=== PATIENT | female | born 1960 | race Hispanic/Latino ===

== ENCOUNTER → 2024-01-05 07:22 | Outpatient (REF) | payer OTHER, SELFPAY ==
[2024-01-05 08:52] LABS: % Basophils 0.7 % (0-2); % Eosinophils 5.5 % (0-6); % Immature Granulocytes 0.2 % (0-0.5); % Lymphocytes 39.3 % (20.5-51.1); % Monocytes 7.9 % (1.7-9.3); % Neutrophils 46.4 % (42.2-75.2); Absolute Basophils 0.1 10^3/uL (0-0.2); Absolute Eosinophils 0.5 10^3/uL (0-0.7); Absolute Lymphocytes 3.4 10^3/uL (1.2-3.4); Absolute Monocytes 0.7 10^3/uL (0.1-0.6); Hematocrit 39.8 % (37.0-47.0); Hemoglobin 12.9 g/dL (12.0-16.0); Mean Corp Hgb Conc. 32.4 g/dL (33.0-37.0); Mean Corpuscular Hgb 29.2 pg (27.0-31.0); Mean Platelet Volume 10.7 fL (7.4-10.4); Nucleated Red Blood Cells % 0 %; Platelet Count 242 10^3/uL (130-400); Red Blood Cell Count 4.42 10^6/uL (4.20-5.40); Red Cell Dist. Width 14.3 % (11.5-14.5); White Blood Cell Count 8.7 10^3/uL (4.8-10.8)
[2024-01-05 09:39] LABS: Blood Urea Nitrogen 20 mg/dl (7-17); Calcium 9.7 mg/dl (8.4-10.2); Carbon Dioxide 28 mmol/L (22-30); Chloride 103 mmol/L (98-107); Glucose 137 mg/dl (70-99); Potassium 4.2 mmol/L (3.5-5.1); Sodium 140 mmol/L (135-145); eGFR > 60.00
[2024-01-05 13:15] LABS: Glycohemoglobin (HgbA1c) 6.5 % (4.0-5.6)
== END ==
LOC: CLINIC 07:22
PROVIDERS: ATTENDING PHYSICIAN Nurse Practitioner Adult Health
DX: K92.1 Melena (principal); E11.9 Type 2 diabetes mellitus without complications
CPT/HCPCS: 36415; 80048; 83036; 85025

== ENCOUNTER → 2024-01-20 06:18 | Day surgery (SDC) | payer OTHER, SELFPAY ==
[2024-01-20 08:46] LABS: Glucose - Point of Care 112 mg/dl (70-99)
== END ==
LOC: GI 06:18
PROVIDERS: ATTENDING PHYSICIAN Internal Medicine Gastroenterology
DX: Z12.11 Encounter for screening for malignant neoplasm of colon (principal); K64.8 Other hemorrhoids; D12.5 Benign neoplasm of sigmoid colon; K92.1 Melena; K29.60 Other gastritis without bleeding; B96.81 Helicobacter pylori [H. pylori] as the cause of diseases classified elsewhere
CPT/HCPCS: 45385; 43239; 88305; 82962; 88342

== ENCOUNTER 2024-01-25 14:12 | Inpatient (IN) | payer MEDICAID, SELFPAY ==
[2024-01-25 09:57] VITALS: BP 170/98
--- NOTE | 2024-01-25 11:16 | ED.GENMED ---
History of Present Illness
General
Chief Complaint: Anal/Rectal Problem
Source: patient
Exam Limitations: none
Time Seen by Provider: 01/25/24 11:00
Nursing documentation reviewed up to this point in time: agreed with
Travel History
Have you had any contact with someone who has COVID-19?: No
Do you have any symptoms of coronavirus? Fever > 100 degrees, chills, cough, shortness of breath, sore throat, loss of taste or smell, muscle aches, or headache?: No
History of Present Illness
History of Present Illness:
63-year-old female smoker with history of HTN, GERD, NIDDM, hysterectomy presents 5 days after colonoscopy with one 7 mm polyp removal, internal small hemorrhoids, biopsy showed Dameon back to gastritis, no malignancy, states every day since the
colonoscopy she has had rectal bleeding. Bleeding reportedly mild the first day after the colonoscopy, gradually increasing since and today had large amount liquid bloody stool with clots. Denies abdominal pain. Denies fever/chills.
Past History
Past History
ED Past Medical History: CAD, HTN, Hypercholesterolemia, NIDDM, [place] and Other (Diabetes)
ED Past Surgical History: Gynecological
Social History
Tobacco: Smoker
Alcohol: None
Drug: None
Living: with family
Review of Systems
Review of Systems
Allergies reviewed?: Yes
All Other Systems: ROS reviewed and negative except as documented in HPI and ROS
Constitutional: Denies fever or chills
Respiratory: Denies trouble breathing
Cardiac: Denies chest pain or syncope
ABD/GI: Reports bloody stools; Denies abdominal pain, nausea or vomiting
: Denies dysuria, difficulty voiding or urgency
Musculoskeletal: Reports no symptoms
Skin: Reports no symptoms
Neurological: Reports no symptoms
Phy Exam
Physical Exam
Physical Exam:
GENERAL: No acute distress. A&Ox3.
CONSTITUTIONAL: Afebrile.
EYES: Clear, conjunctivae normal
ENMT: moist mucus membranes, Pharynx nl
RESPIRATORY: Regular respirations, nonlabored, lungs clear.
CARDIOVASCULAR: Regular rate and rhythm, no murmurs, no rubs.
GI: Soft, nontender, normal BS
Rectal: No visible hemorrhoids, no stool in rectal vault, no palpable masses, mucus on gloved finger is pink, hematests positive.
MUSCULOSKELETAL: Moves with ease. Well perfused.
SKIN: Warm, dry, pink
PSYCH: Normal mood and affect. Well kept, interactive and appropriate
NEUROLOGIC: Awake, alert and oriented. No focal neurological deficits
Course
Orders/Labs/Results
Orders:
Orders
01/25/24 11:47
Type+Screen Urgent
Complete Blood Count/With Diff Urgent
Comprehensive Metabolic Panel Urgent
01/25/24 13:33
GASTROINTESTINAL CONSULT Urgent
Consulting Provider: Danni Ahn
Was physician already notified: Yes
Reason for consult: Rectal bleeding 5 days post colonoscopy
01/25/24 13:46
Admit/Transfer Patient As Directed
Co-Sign Provider:
Level of Care: Inpatient admission
Assign to:: Medical/Surgical
Physician / Group: Hospitalist
Diagnosis: GI bleeding
Reason for Hospitalization: .
Expected length of stay greater than two midnights?: Yes
ELOS- Estimated Length of Stay in days: 3
I certify the patient meets the requirements for IP care: Yes
01/25/24 13:50
Code Status As Directed
Resuscitation Status: Full Code
01/25/24 16:19
VTE Contraindication Routine
VTE Mechanical Device Contraindication: Medical Contraindication
Pharmocologic Contraindication: Bleeding
Abnormal Lab Results
01/25/24
11:47
RBC 3.88 L 10^6/uL
(4.20-5.40)
Hgb 11.5 L g/dL
(12.0-16.0)
Hct 34.3 L %
(37.0-47.0)
MPV 10.8 H fL
(7.4-10.4)
Absolute Monos (auto) 0.7 H 10^3/uL
(0.1-0.6)
BUN 19 H mg/dl
(7-17)
Creatinine 0.5 L mg/dL
(0.6-1.0)
Glucose 127 H mg/dl
(70-99)
01/25/24 11:47
01/25/24 11:47
Vital Signs
Initial and Last Documented VS:
Initial Vital Signs
Temp Pulse Resp BP Pulse Ox
98.3 F 56 20 170/98 96
01/25/24 09:57 01/25/24 09:57 01/25/24 09:57 01/25/24 09:57 01/25/24 09:57
Last Documented Vital Signs
Temp Pulse Resp BP Pulse Ox
98.3 F 55 18 165/80 99
01/25/24 09:57 01/25/24 14:24 01/25/24 14:24 01/25/24 14:24 01/25/24 14:24
MDM/Problems Addressed
Differential Diagnosis Includes:
Post colonoscopy bleeding, bleeding polyp, internal hemorrhoid
MDM/Problems Addressed:
63-year-old female smoker with history of HTN, GERD, NIDDM, hysterectomy presents 5 days after colonoscopy with one 7 mm polyp removal, internal small hemorrhoids, biopsy showed Dameon back to gastritis, no malignancy, states every day since the
colonoscopy she has had rectal bleeding. Bleeding reportedly mild the first day after the colonoscopy, gradually increasing since and today had large amount liquid bloody stool with clots. Denies abdominal pain. Denies fever/chills.
Pt reports she just had a liquid bloody BM with clots but this not observed by staff.
NAD, VSS
1:09 PM
CBC: Hemoglobin 11.5 (12.9 on 01/05/2024)
CMP: Normal
63 yo female on Plavix with daily rectal bleeding, reportedly increasing since colonoscopy 5 days ago.
Consulted GI Dr. Ahn who requests admit with clear liquids only. GI consult in
Hospitalist notified of admission.
Pt remains stable, no further rectal bleeding
Chronic conditions affecting care: DM, HTN and CAD (on Plavix)
*Critical Care Note
Total Time (30-74mins, 75-104mins- exclusive of procedures): Not Applicable
ED Attending Note
-
Portions of this chart may have been created with voice recognition software.� Occasional wrong word or��sound alike� substitutions may have occurred due to the inherent limitations of voice recognition software.
Discharge Plan
Departure
Patient Disposition: Admit
Date of Disposition: 01/25/24
Time of Disposition: 13:40
Admit to: Med/Surg
Presentation/result/management discussed w/ accepting MD/DO: Hospitalist
Condition: Fair
Discharge Problem:
RB (rectal bleeding)
Interventions
Interventions:
*Risk Screen - Suicide Last Done: 01/25/24 16:32
*General Assessment Last Done: 01/25/24 11:50
*Neglect/Abuse Screening Last Done: 01/25/24 11:50
ED- Fall Risk Assessment Last Done: 01/25/24 16:05
*ED COVID-19 Vaccine History Last Done: 01/25/24 11:50
*Nursing Disposition Last Done: 01/25/24 16:05
HA-G[facility] Assessment Last Done: 01/25/24 11:49
ED-Skin Assessment Last Done: 01/25/24 11:49
Discharge Date and Time
Discharge Date/Time: 01/25/24 16:05
[2024-01-25 12:01] LABS: % Basophils 0.6 % (0-2); % Eosinophils 2.6 % (0-6); % Immature Granulocytes 0.2 % (0-0.5); % Lymphocytes 25.3 % (20.5-51.1); % Neutrophils 64.3 % (42.2-75.2); Absolute Basophils 0.1 10^3/uL (0-0.2); Absolute Eosinophils 0.2 10^3/uL (0-0.7); Absolute Lymphocytes 2.3 10^3/uL (1.2-3.4); Absolute Monocytes 0.7 10^3/uL (0.1-0.6); Absolute Neutrophils 5.9 10^3/uL (1.4-6.5); Hematocrit 34.3 % (37.0-47.0); Hemoglobin 11.5 g/dL (12.0-16.0); Mean Corp Hgb Conc. 33.5 g/dL (33.0-37.0); Mean Corpuscular Hgb 29.6 pg (27.0-31.0); Mean Corpuscular Volume 88.4 fL (81.0-99.0); Mean Platelet Volume 10.8 fL (7.4-10.4); Nucleated Red Blood Cells % 0 %; Platelet Count 216 10^3/uL (130-400); Red Blood Cell Count 3.88 10^6/uL (4.20-5.40); Red Cell Dist. Width 14.3 % (11.5-14.5); White Blood Cell Count 9.2 10^3/uL (4.8-10.8)
[2024-01-25 12:19] LABS: ALT (SGPT) 21 U/L (0-35); AST (SGOT) 24 U/L (14-36); Albumin 4.3 g/dl (3.5-5.0); Alkaline Phosphatase 51 U/L (38-126); Blood Urea Nitrogen 19 mg/dl (7-17); Calcium 9.8 mg/dl (8.4-10.2); Carbon Dioxide 25 mmol/L (22-30); Chloride 106 mmol/L (98-107); Glucose 127 mg/dl (70-99); Potassium 4.5 mmol/L (3.5-5.1); Sodium 138 mmol/L (135-145); Total Bilirubin 0.5 mg/dl (0.2-1.3); Total Protein 6.9 g/dl (6.3-8.2); eGFR > 60.00
--- NOTE | 2024-01-25 13:45 | HPS.HSE ---
Family Physician
-
Family Physician: * NONE
Chief Complaint
-
Rectal bleeding for a few days during
History of Present Illness
63 years old female came from home. History taken from the patient and her daughter. Patient had colonoscopy on January 19. She started to have on and off rectal bleeding described as a fresh blood per rectum. It became more intense this
morning when she had bowel movement. No abdominal pain. No nausea or vomiting. She called her GI doctor office Dr. Leon and she was advised to go to the emergency room. Her hemoglobin is 11.5. No leukocytosis. Heart rate was 56.
Medical History
Past Medical History
Past Medical History: Reports Other (coronary artery disease, hypertension, hyperlipidemia, diabetes. )
Past Surgical History: Reports Other ( No recent major surgery)
Social History
Tobacco: Former Smoker
Alcohol: None
Drug: None
Personal:
Living: With Family
Employment: Not Employed
Family History
Family History: Other (No family history of colon cancer or inflammatory bowel disease)
Allergies / Home Medications
Allergies reflects when Allergies were last updated in [facility].
Home Medications with original date entered in [facility]
Allergy/Medication List:
Allergies
Allergy/AdvReac Type Severity Reaction Status Date / Time
No Known Allergies Allergy Verified 01/25/24 09:57
Home Medications
aspirin 81 mg chewable tablet 81 mg PO DAILY #90 tabs 08/08/23
atorvastatin 80 mg tablet 80 mg PO QPM #90 tabs 08/08/23
metoprolol tartrate 25 mg tablet 25 mg PO BID #180 tabs 08/08/23
pantoprazole 40 mg tablet,delayed release (Protonix) 40 mg PO BID #30 tabs 08/14/23
lisinopril 5 mg tablet 10 mg PO DAILY 01/25/24
metformin 500 mg tablet 1,000 mg PO BID@0800,1700 01/25/24
Review of Systems
-
History Source: Patient
A 12 point ROS was completed and negative except as noted: Yes
Constitutional: Denies Fever, Fatigue or Night Sweats
EENT: Denies Sore Throat
Respiratory: Denies Cough or Trouble Breathing
Cardiac: Denies Chest Pain or Diaphoresis
Abdomen/GI: Reports Bloody Stools; Denies Abdominal Pain or Nausea
: Denies Dysuria
Musculoskeletal: Denies Joint Pain
Skin: Denies Itching
Neurological: Denies Dizzy or Numbness
Endocrine: Denies Temp Intolerance
Hematologic/Lymphatic: Denies Bruising
Psych: Denies Panic Disorder
Physical Exam
Vital Signs
Vital Signs
Temp Pulse Resp BP Pulse Ox
98.3 F 56 20 170/98 96
01/25/24 09:57 01/25/24 09:57 01/25/24 09:57 01/25/24 09:57 01/25/24 09:57
Physical Exam
General: No Apparent Distress and Comfortable
HEENT: Anicteric, Moist mucous membranes and Atraumatic
Respiratory: Clear
Cardiac: Regular Rhythm and Murmur
GI: Soft, Non Tender and Non Distended
Genito-urinary: No costovertebral tender
Musculoskeletal: No Cyanosis and No Edema
Skin: Warm; No Jaundice
Neuro: AO x 3 and Nonfocal/grossly intact
Psych: Calm and Intact Judgment/Insight
Laboratory Results
-
01/25/24 11:47
01/25/24 11:47
Laboratory Results
Total Bilirubin 0.5 mg/dl (0.2-1.3) 01/25/24 11:47
AST 24 U/L (14-36) 01/25/24 11:47
ALT 21 U/L (0-35) 01/25/24 11:47
Alkaline Phosphatase 51 U/L (38-126) 01/25/24 11:47
Impression/Plan
-
63 years old female presented with rectal bleeding
# Acute blood loss anemia/mild secondary to rectal bleed
This could be related to recent colonoscopy and polypectomy. Patient takes aspirin at home.
No abdominal pain. No nausea or vomiting. No leukocytosis. No fevers
Admit the patient to the hospital. Monitor hemoglobin level. Continue with home medication including Protonix.
Biopsy during colonoscopy did not reveal carcinoma
Monitor vital signs closely
Appreciate GI input
# Helicobacter induced gastritis
No abdominal pain by history of indigestion and reflux.
Will discuss with GI which regimen they prefer/recommended
# History of coronary artery disease. No chest pain. Continue home medication including aspirin
#Diabetes. Will hold metformin and continue with insulin sign scale
#Primary hypertension, uncontrolled, systolic blood pressure between 175- 165. Patient took her medications at home. Will monitor blood pressure in the hospital. will add as needed hydralazine
# Hyperlipidemia. No changes intended.
Total time spent to see the patient, examine the patient on the floor, review data and lab results, discuss treatment plan with patient, ER doctor, nursing staff around 75 minutes.
[2024-01-25 14:24] VITALS: BP 165/80
--- NOTE | 2024-01-25 15:04 | CON.GI ---
Addendum entered and electronically signed by Danni Ahn MD 01/25/24 17:34:
I saw and examined the patient.
The BUFFING MACHINE TENDER or PA's note was reviewed and I agree with the note.
Comment: 63-year-old female past with history of CAD on Plavix and send refers only on aspirin presenting for melena, colonoscopy for positive Cologuard found to have H. pylori and 7 mm SSA in the sigmoid which was removed with cold snare. Had some
rectal bleeding. Most likely post polypectomy bleed. Suspect will resolve on its own. Will trend hemoglobin and monitor stools. Clear liquid diet. If ongoing bleeding, will need colonoscopy on Tuesday. If bleeding resolves, will be able to be
discharged tomorrow. H. pylori treatment outpatient would not treat an acute setting. Discussed with Dr. Shen and daughter at bedside. Patient Czech speaking.
Original Note:
Consultation
-
Date/Time Consultation Requested: 01/25/24 1400
Date/Time Consultation Performed: 01/25/24 1500
Requesting Provider: Dia Shen MD
Performing Provider: JELANI Santos, Gisela Ahn MD
Reason for Consultation: rectal bleeding
Medical History
Chief Complaint / HPI
Chief Complaint: rectal bleeding
History of Present Illness:
Pt is a 63yo present with hx CAD prior stent off Plavix since November on ASA alone no other NSAIDs, GERD, HTN, DM with EGD/colon 01/19 for + cologuard and melena. Results with noted 7 mm Sessile Serrated polyp- sigmoid removed with hot snare and
Internal hemorrhoids. EGD with normal esophagus and duodenum and gastritis with H pylori + . Pt now presents to ER with rectal bleeding. She initially saw blood day after colonoscopy but still persistent bleeding with larger amount of red blood
noted this am.
Pt denies other GI complaints with some soft stool noted with blood.
Past Medical History
Past Medical History: CAD, GERD, HTN and NIDDM
Past Surgical History: Cardiac (stents) and Gynecological (hysterectomy)
Social History
Tobacco: Former Smoker
Alcohol: None
Drug: None
Living: With Family
Family History
Family History: Other (no family hx colon cA or polyps)
Allergies / Home Medications
Allergy/AdvReac Type Severity Reaction Status Date / Time
No Known Allergies Allergy Verified 01/25/24 09:57
�Medication �Instructions �Recorded
aspirin 81 mg chewable tablet 81 mg PO DAILY #90 tabs 08/08/23
atorvastatin 80 mg tablet 80 mg PO QPM #90 tabs 08/08/23
metoprolol tartrate 25 mg tablet 25 mg PO BID #180 tabs 08/08/23
pantoprazole 40 mg tablet,delayed 40 mg PO BID #30 tabs 08/14/23
release (Protonix)
lisinopril 5 mg tablet 10 mg PO DAILY 01/25/24
metformin 500 mg tablet 1,000 mg PO BID@0800,1700 01/25/24
Review of Systems
-
History Source: Patient and Family (assist with language barrier)
Constitutional: Reports No Symptoms
EENT: Reports No Symptoms
Respiratory: Reports No Symptoms
Abdomen/GI: Reports Bloody Stools
: Reports No Symptoms
Musculoskeletal: Reports No Symptoms
Skin: Reports No Symptoms
Neurological: Reports Weakness
Endocrine: Reports No Symptoms
Hematologic/Lymphatic: Reports Bleeding
Vital Signs
Temp Pulse Resp BP Pulse Ox
98.3 F 55 18 165/80 99
01/25/24 09:57 01/25/24 14:24 01/25/24 14:24 01/25/24 14:24 01/25/24 14:24
Physical Exam
Exam
General: Well Developed, Well Nourished and No Apparent Distress
HEENT: Normocephalic, Anicteric and Moist Mucous Membranes
Respiratory: Clear
Cardiac: Regular Rhythm
GI: Soft, Non Tender and Non Distended
Rectal: Red (small amount red blood per Dr. Ahn exam)
Musculoskeletal: No Clubbing and No Cyanosis
Skin: Warm and Dry
Neuro: Awake, Alert and AO x 3 (monegasque speaking)
Hematologic/Lymphatic: Lymphadenopathy
Psych: Calm
Results
WBC 9.2 10^3/uL (4.8-10.8) 01/25/24 11:47
Hgb 11.5 g/dL (12.0-16.0) L 01/25/24 11:47
Hct 34.3 % (37.0-47.0) L 01/25/24 11:47
MCV 88.4 fL (81.0-99.0) 01/25/24 11:47
Plt Count 216 10^3/uL (130-400) 01/25/24 11:47
Absolute Neuts (auto) 5.9 10^3/uL (1.4-6.5) 01/25/24 11:47
Sodium 138 mmol/L (135-145) 01/25/24 11:47
Potassium 4.5 mmol/L (3.5-5.1) 01/25/24 11:47
Chloride 106 mmol/L (98-107) 01/25/24 11:47
Carbon Dioxide 25 mmol/L (22-30) 01/25/24 11:47
BUN 19 mg/dl (7-17) H 01/25/24 11:47
Creatinine 0.5 mg/dL (0.6-1.0) L 01/25/24 11:47
Calcium 9.8 mg/dl (8.4-10.2) 01/25/24 11:47
Total Bilirubin 0.5 mg/dl (0.2-1.3) 01/25/24 11:47
AST 24 U/L (14-36) 01/25/24 11:47
ALT 21 U/L (0-35) 01/25/24 11:47
Alkaline Phosphatase 51 U/L (38-126) 01/25/24 11:47
Diagnostic Image Results:
Prior GI Procedures:
EGD: 01/20/24 with normal esophagus and duodenum and gastritis with H pylori + .
Colonoscopy: 01/20/24 ronnivan 7 mm sessile serrated polyp -sigmoid removed with hot snare and Internal hemorrhoids.
Assessment / Plan
-
Pt is a 63yo present with hx CAD prior stent off Plavix since November on ASA alone no other NSAIDs, GERD, HTN, DM with EGD/colon 01/19 for + cologuard and melena. Results with noted 7 mm Sessile serrated polyp sigmoid colon, removed with hot
snare and Internal hemorrhoids. EGD with normal esophagus and duodenum and gastritis with H pylori + . Pt now presents to ER with rectal bleeding. She initially saw blood day after colonoscopy but still persistent bleeding with larger amount of
red blood noted this am. hbg 11.5 down from 12.9, 01/04.
-rectal bleeding concern for post polypectomy bleed after colonoscopy- Sessile serrated polyps in sigmoid
-+ H. pylori
other medical problems:
-CAD with prior stent
-GERD
-HTN
-DM
PLAN:
etiology of bleeding related to post polypectomy bleed vs hemorrhoidal vs other
plan for observation for recurrent bleeding
if further bleeding consider colonoscopy for further treatment of polyp site and eval for any other source
trend hbg
transfuse as needed
will need treatment for H pylori but would treat 1-2 weeks after admission after bleeding issues improved-
ok for clear diet
cont PPI
ok for continues ASA use with hx stent
family updated at bedside
will follow
-
-
Thank you for consultation and allowing me to participate in the patient's care. Please call the furnace combustion analyst GI physician during the after hours with any questions or concerns.
[2024-01-25 16:43] LABS: Hematocrit 32.7 % (37.0-47.0); Hemoglobin 10.9 g/dL (12.0-16.0)
[2024-01-25] MEDS: LIPITOR 80 MG PO (17:27)
--- NOTE | 2024-01-25 17:34 | W.PN.UPDATE ---
Update Note
Progress Note Update
billing purposes
--- NOTE | 2024-01-25 17:57 | PTCARENOTE ---
received pt from ED to room 319-2, assessed pt, oriented to room, call mg within reach, no complaints of pain.
[2024-01-25] MEDS: PROTONIX 40 MG PO (20:05)
[2024-01-25] MEDS: MELATONIN 5 MG PO (20:54)
[2024-01-25] MEDS: LOPRESSOR 12.5 MG PO (20:54)
[2024-01-25 23:44] VITALS: BP 143/65
[2024-01-26 00:34] LABS: Hematocrit 32.5 % (37.0-47.0); Hemoglobin 10.7 g/dL (12.0-16.0)
[2024-01-26 07:00] VITALS: BP 176/64
[2024-01-26] MEDS: LOW STRENGTH ASPIRIN 81 MG PO (08:54)
[2024-01-26] MEDS: LOPRESSOR 12.5 MG PO ×2 (08:54→20:36)
[2024-01-26] MEDS: PROTONIX 40 MG PO ×2 (08:54→20:36)
[2024-01-26] MEDS: ZESTRIL 20 MG PO (08:54)
[2024-01-26 09:14] LABS: Hematocrit 33.9 % (37.0-47.0); Hemoglobin 11.3 g/dL (12.0-16.0); Mean Corp Hgb Conc. 33.3 g/dL (33.0-37.0); Mean Corpuscular Hgb 29.4 pg (27.0-31.0); Mean Corpuscular Volume 88.1 fL (81.0-99.0); Mean Platelet Volume 10.3 fL (7.4-10.4); Platelet Count 214 10^3/uL (130-400); Red Blood Cell Count 3.85 10^6/uL (4.20-5.40); Red Cell Dist. Width 14.5 % (11.5-14.5); White Blood Cell Count 7.4 10^3/uL (4.8-10.8)
--- NOTE | 2024-01-26 09:56 | W.PN.GI.CBS2 ---
Addendum entered and electronically signed by Danni Ahn MD 01/26/24 13:27:
I saw and examined the patient.
The BALANCE ASSEMBLER or PA's note was reviewed and I agree with the note.
Comment: 63 yo F here with BRB after cscope suspect post polpectomy bleed 7 mm SSA removed cold snare.
No further BM x24 hours.
Hb stable.
Regular diet, plan for DC today. Counseled pt and daughter to return if bleeding recurs.
Will update hospitalist.
D/w Dr. Leon as well outpatient GI he will follow patient up including HP.
Addendum entered and electronically signed by JELANI Rousseau 01/26/24 12:34:
repeat hbg stable will advance diet
Original Note:
Today's Communication / Plan
-
etiology of bleeding related to post polypectomy bleed vs hemorrhoidal vs other
hbg 11.5-10.9-10.7-11.3
will repeat at noon again
monitor for recurrent bleeding
will decide at noon hbg and AM if any further stools if advance diet or proceed with colonoscopy prep for tomorrow
updated pt and family
transfuse as needed if drop
will need treatment for H pylori but would treat 1-2 weeks after admission after bleeding issues improved--- Dr. Leon updated and reviewed with daughter
cont PPI
ok for continues ASA use with hx stent
will follow
Assessment / Plan
-
Pt is a 63yo present with hx CAD prior stent off Plavix since November on ASA alone no other NSAIDs, GERD, HTN, DM with EGD/colon 01/19 for + cologuard and melena. Results with noted 7 mm Sessile serrated polyp sigmoid colon, removed with hot
snare and Internal hemorrhoids. EGD with normal esophagus and duodenum and gastritis with H pylori + . Pt now presents to ER with rectal bleeding. She initially saw blood day after colonoscopy but still persistent bleeding with larger amount of
red blood noted this am. hbg 11.5 down from 12.9, /.
-rectal bleeding concern for post polypectomy bleed after colonoscopy- Sessile serrated polyps in sigmoid
-+ H. pylori
other medical problems:
-CAD with prior stent
-GERD
-HTN
-DM
PLAN:
etiology of bleeding related to post polypectomy bleed vs hemorrhoidal vs other
hbg 11.5-10.9-10.7-11.3
will repeat at noon again
monitor for recurrent bleeding
will decide at noon hbg and AM if any further stools if advance diet or proceed with colonoscopy prep for tomorrow
updated pt and family
transfuse as needed if drop
will need treatment for H pylori but would treat 1-2 weeks after admission after bleeding issues improved--- Dr. Leon updated and reviewed with daughter
cont PPI
ok for continues ASA use with hx stent
will follow
Subjective
Subjective
Date of Service: January 26, 2024
01/24 blood stool records but patient and family deny any stools since 9am, on clear diet
Objective
Data Reviewed
Laboratory Data:
Laboratory Results
01/26/24 09:05
01/25/24 11:47
Laboratory Results
Total Bilirubin 0.5 mg/dl (0.2-1.3) 01/25/24 11:47
AST 24 U/L (14-36) 01/25/24 11:47
ALT 21 U/L (0-35) 01/25/24 11:47
Alkaline Phosphatase 51 U/L (38-126) 01/25/24 11:47
Vital Signs and I&O:
Vital Signs
Temp Pulse Resp BP Pulse Ox
97.8 F 53 16 176/64 98
01/26/24 07:00 01/26/24 08:54 01/26/24 07:00 01/26/24 08:54 01/26/24 07:00
I&O
01/25/24 01/26/24 01/27/24
06:59 06:59 06:59
Intake Total 240 / 240
Balance 240 / 240
Physical Exam
Physical Exam
HEENT: Anicteric and Moist mucous membranes
Cardiology: Other (bradicardia)
Pulmonary: Clear
GI: Soft, Non Distended and Non Tender
Extremities: No Edema
Neuro: Non Focal and Other (uzbek speaking family assist )
[2024-01-26 11:00] VITALS: BP 179/76
--- NOTE | 2024-01-26 12:04 | W.PN.HOSP.TC ---
Today's Communication/Plan
-
Advance diet
Monitor for rectal bleeding/ BM
Assessment / Plan
Assessment / Plan
Physical Exam
General: No Apparent Distress and Comfortable
HEENT: Anicteric, Moist mucous membranes and Atraumatic
Respiratory: Clear
Cardiac: Regular Rhythm and Murmur
GI: Soft, Non Tender and Non Distended
Genito-urinary: No costovertebral tender
Musculoskeletal: No Cyanosis and No Edema
Skin: Warm; No Jaundice
Neuro: AO x 3 and Nonfocal/grossly intact
Psych: Calm and Intact Judgment/Insight
63 years old female presented with rectal bleeding
# Acute blood loss anemia/mild secondary to rectal bleed
This could be related to recent colonoscopy and polypectomy. Patient takes aspirin at home.
No abdominal pain. No nausea or vomiting. No leukocytosis. No fevers
. Monitor hemoglobin level. HGB stable around 11. Continue with home medication including Protonix.
Biopsy during colonoscopy did not reveal carcinoma
Monitor vital signs closely
Appreciate GI input
# Helicobacter induced gastritis
No abdominal pain by history of indigestion and reflux.
To be treated as OP.
# History of coronary artery disease. No chest pain. Continue home medication including aspirin
#Diabetes. Will hold metformin and continue with insulin sign scale
#Primary hypertension, uncontrolled, systolic blood pressure between 175- 165. Patient took her medications at home. Will increase lisinopril to 20 mg QD, add PRN hydralazine.
No chest pain or headache
# Hyperlipidemia. No changes intended.
Total time spent to see the patient, examine the patient on the floor, review data and lab results, discuss treatment plan with patient, daughter, nursing staff around 55 minutes.
Anticipated Discharge: Within 24 hours
Subjective/Interval History
-
Date of Service: January 26, 2024
No sob
No chest pain
Objective Data
-
Labs:
Laboratory Results
01/26/24 01/26/24 01/26/24
00:27 08:19 09:05
WBC 7.4
Hgb 10.7 L Cancelled 11.3 L
Hct 32.5 L Cancelled 33.9 L
Plt Count 214
01/26/24
12:00
WBC
Hgb Pending
Hct Pending
Plt Count
Vital Signs:
Vital Signs
Temp Pulse Resp BP Pulse Ox
97.8 F 48 16 179/76 98
01/26/24 07:00 01/26/24 11:00 01/26/24 07:00 01/26/24 11:00 01/26/24 07:00
I&O
01/25/24 01/26/24 01/27/24
06:59 06:59 06:59
Intake Total 240 / 240
Balance 240 / 240
[2024-01-26 12:29] LABS: Hematocrit 35.7 % (37.0-47.0); Hemoglobin 11.4 g/dL (12.0-16.0)
[2024-01-26 13:01] VITALS: BP 138/60
--- NOTE | 2024-01-26 13:27 | W.PN.UPDATE ---
Update Note
Progress Note Update
billing purposes
[2024-01-26 15:00] VITALS: BP 169/74
[2024-01-26 16:45] LABS: Glucose - Point of Care 138 mg/dl (70-99)
[2024-01-26] MEDS: LIPITOR 80 MG PO (17:07)
[2024-01-26] MEDS: GLUCOPHAGE 1000 MG PO (17:07)
[2024-01-26] MEDS: MELATONIN 5 MG PO (21:13)
[2024-01-26] MEDS: APRESOLINE 5 MG PO (21:13)
[2024-01-26 21:18] LABS: Glucose - Point of Care 89 mg/dl (70-99)
[2024-01-26 23:25] VITALS: BP 159/68
[2024-01-27] MEDS: APRESOLINE 5 MG PO (02:41)
[2024-01-27 06:16] LABS: Hematocrit 34.1 % (37.0-47.0); Hemoglobin 11.1 g/dL (12.0-16.0); Mean Corp Hgb Conc. 32.6 g/dL (33.0-37.0); Mean Corpuscular Hgb 29.4 pg (27.0-31.0); Mean Corpuscular Volume 90.2 fL (81.0-99.0); Mean Platelet Volume 10.6 fL (7.4-10.4); Platelet Count 201 10^3/uL (130-400); Red Blood Cell Count 3.78 10^6/uL (4.20-5.40); Red Cell Dist. Width 14.3 % (11.5-14.5); White Blood Cell Count 7.5 10^3/uL (4.8-10.8)
--- NOTE | 2024-01-27 06:30 | W.PN.GI.CBS2 ---
Today's Communication / Plan
-
See assessment and plan for details.
Assessment / Plan
-
1. Post polypectomy bleed: No bowel movement for 2 days, hemoglobin remained stable, tolerating diet, no signs of further significant bleeding. She is okay to DC from a GI standpoint on aspirin if indicated. Will sign off for now, please back
with any further questions.
Subjective
Subjective
Date of Service: January 27, 2024
Patient feeling well, no abdominal pain, no bowel movements for 2 days, he will remained stable.
Objective
Data Reviewed
Laboratory Data:
Laboratory Results
01/27/24 05:56
Laboratory Results
Total Bilirubin 0.5 mg/dl (0.2-1.3) 01/25/24 11:47
AST 24 U/L (14-36) 01/25/24 11:47
ALT 21 U/L (0-35) 01/25/24 11:47
Alkaline Phosphatase 51 U/L (38-126) 01/25/24 11:47
Vital Signs and I&O:
Vital Signs
Temp Pulse Resp BP Pulse Ox
97.6 F 54 18 152/75 99
01/26/24 23:25 01/27/24 02:41 01/26/24 23:25 01/27/24 02:41 01/26/24 23:25
I&O
01/25/24 01/26/24 01/27/24
06:59 06:59 06:59
Intake Total 240 / 240 1560 / 1560
Balance 240 / 240 1560 / 1560
Physical Exam
Physical Exam
General: NAD
Abdomen: normal bowel sounds, soft, no tenderness, no masses or bruits, no ascites
[2024-01-27 06:50] LABS: Blood Urea Nitrogen 21 mg/dl (7-17); Calcium 9.8 mg/dl (8.4-10.2); Carbon Dioxide 29 mmol/L (22-30); Chloride 104 mmol/L (98-107); Estimated Creatinine Clearance 98 ml/min; Glucose 125 mg/dl (70-99); Potassium 4.3 mmol/L (3.5-5.1); Sodium 138 mmol/L (135-145); eGFR > 60.00
[2024-01-27 07:38] VITALS: BP 120/63
[2024-01-27 07:45] LABS: Glucose - Point of Care 122 mg/dl (70-99)
[2024-01-27] MEDS: GLUCOPHAGE 1000 MG PO (08:20)
[2024-01-27] MEDS: LOW STRENGTH ASPIRIN 81 MG PO (08:21)
[2024-01-27] MEDS: LOPRESSOR 12.5 MG PO (08:21)
[2024-01-27] MEDS: PROTONIX 40 MG PO (08:21)
[2024-01-27] MEDS: ZESTRIL 20 MG PO (08:21)
--- NOTE | 2024-01-27 08:32 | CM ---
met with patient at bedside who speaks kyrgyz.she does not understand any englis.i spoke with daughter joel for information.patient lives with her daughter in an apt in her house.she has 15 steps to enter.her bed and bath is on the first
level,she amb i and is i with her adl's.she sees a doctor through the [place] [facility] at .she has never had a vn or been in ip rehab.patient is adm with gi bleed after polypectomy.seen by gi.she has a stable hgb and is tolerating her
diet.patient will dc home with no needs.
--- NOTE | 2024-01-27 09:18 | W.DCSUMMARY ---
Discharge Summary
Discharge Data
Date of Admission: 01/25/24
Date of Discharge: 01/27/24
-
Pending Results: No
Hospital Course
63 years old female who had recent colonoscopy and polypectomy presented with infrequent episodes of fresh blood in her stools. Her hemoglobin was around 11 upon admission. She did not have abdominal pain or nausea. She was evaluated by
bioinformatics engineer. Patient did not have recurrent rectal bleeding or bloody bowel movements in the hospital. Hemoglobin remained stable around 11. She tolerated diet. She was noticed to have elevated systolic blood pressure around 170. Her
lisinopril dose was increased from 10 mg to 20 mg. She tolerated the new dose and her blood pressure became better controlled. She did not have chest pain or headache. She remained hemodynamically stable and was discharged in a stable condition.
Discharge plan was discussed with the patient and the daughter in the presence of bean weigher. She verbalized understanding. She was given prescription to repeat blood work in 1 week and follow-up with her primary care doctor.
Physical Exam
General: No Apparent Distress and Comfortable
HEENT: Anicteric, Moist mucous membranes and Atraumatic
Respiratory: Clear
Cardiac: Regular Rhythm and Murmur
GI: Soft, Non Tender and Non Distended
Genito-urinary: No costovertebral tender
Musculoskeletal: No Cyanosis and No Edema
Skin: Warm; No Jaundice
Neuro: AO x 3 and Nonfocal/grossly intact
Psych: Calm and Intact Judgment/Insight
Total discharge time spent to see the patient, examine the patient on the floor, review data and lab results, discuss discharge plan with patient, daughter, nursing staff around 65 minutes.
Discharge Plan
-
Patient Disposition: Home (Routine Discharge)
Discharge Diagnosis/Procedures: Gastrointestinal bleeding. No recurrent active bleeding. Stable hemoglobin
Your blood pressure was elevated, lisinopril dose was increased from 10mg to 20 mg.
Follow with your primary car doctor, repeat blood work.
You will need to follow with Dr Leon regarding the biopsy result of the stomach and need to treat H.Pylori
Diet: Diabetic, Carb Controlled
Blood Work: CBC&BMP in one week
Referrals:
Ke Leon MD [Active] - in one to two weeks
NONE,* [Family Provider] -
Prescriptions:
New
lisinopril 20 mg Tablet
20 mg PO DAILY Qty: 30 0RF
Continued
atorvastatin 80 mg Tablet
80 mg PO QPM Qty: 90 3RF
aspirin 81 mg Tablet,Chewable
81 mg PO DAILY Qty: 90 3RF
pantoprazole [Protonix] 40 mg tablet,delayed release (DR/EC)
40 mg PO BID Qty: 30 0RF
metformin 500 mg tablet
1,000 mg PO BID@0800,1700
sertraline 50 mg Tablet
50 mg PO DAILY
metoprolol tartrate 25 mg Tablet
12.5 mg PO BID
Discontinued
lisinopril 5 mg tablet
10 mg PO DAILY
Discharge Orders:
Discharge Patient (As Directed); Ordered 01/27/24
Ordered By: Chidi Shen
Discharge Date and Time
Print Language: BURUNDIAN
== END 2024-01-27 11:33 | disposition home or self-care (01) | DRG 378 ==
LOC: 3 WEST ACU 14:12
PROVIDERS: Nurse Practitioner Adult Health; Registered Nurse; ADMITTING PHYSICIAN Internal Medicine; CONSULT PHYSICIAN Internal Medicine Gastroenterology; EMERGENCY PHYSICIAN Emergency Medicine
DX: K62.5 Hemorrhage of anus and rectum (principal); D62 Acute posthemorrhagic anemia; I10 Essential (primary) hypertension; K21.9 Gastro-esophageal reflux disease without esophagitis; F17.200 Nicotine dependence, unspecified, uncomplicated; E78.00 Pure hypercholesterolemia, unspecified; I25.10 Atherosclerotic heart disease of native coronary artery without angina pectoris; K29.70 Gastritis, unspecified, without bleeding; E11.9 Type 2 diabetes mellitus without complications; B96.81 Helicobacter pylori [H. pylori] as the cause of diseases classified elsewhere; Z90.710 Acquired absence of both cervix and uterus; I25.2 Old myocardial infarction; Z79.82 Long term (current) use of aspirin; Z79.84 Long term (current) use of oral hypoglycemic drugs; Z95.5 Presence of coronary angioplasty implant and graft
CPT/HCPCS: 80048; 80053; 82962; 85014; 85018; 85025; 85027; 86850; 86900; 86901; 99283

== ENCOUNTER → 2024-04-10 06:32 | Outpatient (REF) | payer MEDICAID, SELFPAY ==
[2024-04-10 07:50] LABS: ALT (SGPT) 26 U/L (0-35); AST (SGOT) 24 U/L (14-36); Albumin 4.8 g/dl (3.5-5.0); Alkaline Phosphatase 84 U/L (38-126); Blood Urea Nitrogen 16 mg/dl (7-17); Calcium 10.1 mg/dl (8.4-10.2); Carbon Dioxide 23 mmol/L (22-30); Chloride 105 mmol/L (98-107); Glucose 127 mg/dl (70-99); Potassium 4.8 mmol/L (3.5-5.1); Sodium 140 mmol/L (135-145); Total Bilirubin 0.6 mg/dl (0.2-1.3); Total Protein 7.7 g/dl (6.3-8.2); eGFR > 60.00
[2024-04-10 07:59] LABS: Microalbumin, Random Urine 0.8 mg/dl (0.6-1.7); Microalbumin/creatinine Ratio 11.6 mg/g
[2024-04-10 08:39] LABS: Glycohemoglobin (HgbA1c) 6.2 % (4.0-5.6)
== END ==
LOC: REG 06:32
PROVIDERS: ATTENDING PHYSICIAN Nurse Practitioner Adult Health
DX: E11.9 Type 2 diabetes mellitus without complications (principal)
CPT/HCPCS: 36415; 80053; 82043; 82570; 83036

== ENCOUNTER → 2024-05-07 08:39 | Outpatient (REF) | payer OTHER, SELFPAY | LOC: WDC 08:39 | PROVIDERS: ATTENDING PHYSICIAN Nurse Practitioner Adult Health | DX: R92.8 Other abnormal and inconclusive findings on diagnostic imaging of breast (principal) | CPT/HCPCS: 77062; 77066 ==

== ENCOUNTER → 2024-05-15 06:26 | Outpatient (REF) | payer OTHER, SELFPAY ==
[2024-05-15 07:16] LABS: Hematocrit 40.7 % (37.0-47.0); Hemoglobin 13.4 g/dL (12.0-16.0); Mean Corp Hgb Conc. 32.9 g/dL (33.0-37.0); Mean Corpuscular Hgb 29.2 pg (27.0-31.0); Mean Corpuscular Volume 88.7 fL (81.0-99.0); Mean Platelet Volume 10.5 fL (7.4-10.4); Platelet Count 252 10^3/uL (130-400); Red Blood Cell Count 4.59 10^6/uL (4.20-5.40); Red Cell Dist. Width 14.9 % (11.5-14.5); White Blood Cell Count 9.1 10^3/uL (4.8-10.8)
[2024-05-15 07:43] LABS: HDL Cholesterol 60 mg/dl; LDL Cholesterol, Calculated 71 mg/dl; Total Cholesterol 146 mg/dl (50-199); Triglyceride 78 mg/dl (10-149); Very Low Density Lipoprotein 15 mg/dl (0-30)
[2024-05-16 12:07] LABS: H. pylori Breath Test Positive (Negative)
== END ==
LOC: REG 06:26
PROVIDERS: ATTENDING PHYSICIAN Nurse Practitioner Adult Health
DX: I25.10 Atherosclerotic heart disease of native coronary artery without angina pectoris (principal); E78.5 Hyperlipidemia, unspecified; D50.9 Iron deficiency anemia, unspecified; A04.8 Other specified bacterial intestinal infections
CPT/HCPCS: 36415; 80061; 83013; 85027

== ENCOUNTER → 2024-06-01 06:59 | Outpatient (REF) | payer OTHER, SELFPAY | LOC: RCS 06:59 | PROVIDERS: ATTENDING PHYSICIAN Internal Medicine Cardiovascular Disease; FAMILY PHYSICIAN Nurse Practitioner Adult Health | DX: I25.10 Atherosclerotic heart disease of native coronary artery without angina pectoris (principal); I10 Essential (primary) hypertension; R01.1 Cardiac murmur, unspecified | CPT/HCPCS: 78452; 93017; A9500 ==

== ENCOUNTER → 2024-06-08 08:02 | Outpatient (REF) | payer OTHER, SELFPAY | LOC: RCS 08:02 | PROVIDERS: ATTENDING PHYSICIAN Internal Medicine Cardiovascular Disease | DX: R01.1 Cardiac murmur, unspecified (principal) | CPT/HCPCS: 93306 ==

== ENCOUNTER → 2024-06-20 06:39 | Outpatient (REF) | payer OTHER, SELFPAY ==
[2024-06-21 09:48] LABS: H. pylori Breath Test Negative (Negative)
== END ==
LOC: REG 06:39
PROVIDERS: ATTENDING PHYSICIAN Nurse Practitioner Adult Health
DX: A04.8 Other specified bacterial intestinal infections (principal)
CPT/HCPCS: 83013

== ENCOUNTER → 2024-09-19 06:38 | Outpatient (REF) | payer OTHER, SELFPAY ==
[2024-09-19 09:30] LABS: Glycohemoglobin (HgbA1c) 6.2 % (4.0-5.6)
[2024-09-19 10:03] LABS: ALT (SGPT) 43 U/L (0-35); AST (SGOT) 30 U/L (14-36); Albumin 4.7 g/dl (3.5-5.0); Alkaline Phosphatase 70 U/L (38-126); Blood Urea Nitrogen 23 mg/dl (7-17); Calcium 10.1 mg/dl (8.4-10.2); Carbon Dioxide 26 mmol/L (22-30); Chloride 101 mmol/L (98-107); Glucose 118 mg/dl (70-99); Potassium 5.2 mmol/L (3.5-5.1); Sodium 142 mmol/L (135-145); Total Bilirubin 0.2 mg/dl (0.2-1.3); Total Protein 7.6 g/dl (6.3-8.2); eGFR > 60.00
== END ==
LOC: CLINIC 06:38
PROVIDERS: ATTENDING PHYSICIAN Nurse Practitioner Adult Health
DX: E11.9 Type 2 diabetes mellitus without complications (principal)
CPT/HCPCS: 36415; 80053; 83036

== ENCOUNTER → 2024-10-10 06:44 | Outpatient (REF) | payer OTHER, SELFPAY ==
[2024-10-10 08:59] LABS: Blood Urea Nitrogen 13 mg/dl (7-17); Calcium 9.7 mg/dl (8.4-10.2); Carbon Dioxide 28 mmol/L (22-30); Chloride 101 mmol/L (98-107); Glucose 109 mg/dl (70-99); Potassium 4.6 mmol/L (3.5-5.1); Sodium 137 mmol/L (135-145); eGFR > 60.00
== END ==
LOC: CLINIC 06:44
PROVIDERS: ATTENDING PHYSICIAN Nurse Practitioner Adult Health
DX: E87.5 Hyperkalemia (principal)
CPT/HCPCS: 36415; 80048

== ENCOUNTER → 2024-11-02 16:00 | Outpatient (REF) | payer OTHER, SELFPAY ==
[2024-11-02 16:56] LABS: Urine Albumin Negative (Neg - Trace); Urine Bilirubin Negative (Negative); Urine Character Clear (Clear); Urine Color Yellow; Urine Glucose 3+ (Negative); Urine Ketone Negative (Negative); Urine Leukocyte Negative (Negative); Urine Nitrite Negative (Negative); Urine Occult Blood 4+ (Negative); Urine Urobilinogen Negative (Neg - 1+)
[2024-11-02 18:56] LABS: Urine Red Blood Cell 50-60 /HPF (0-2); Urine White Cell 0-2 /HPF (0-5)
== END ==
LOC: CLINIC 16:00
PROVIDERS: ATTENDING PHYSICIAN Nurse Practitioner Adult Health
DX: R31.9 Hematuria, unspecified (principal)
CPT/HCPCS: 81003; 81015; 87086

== ENCOUNTER → 2024-11-05 13:40 | Outpatient (REF) | payer OTHER, SELFPAY | LOC: WDC 13:40 | PROVIDERS: ATTENDING PHYSICIAN Nurse Practitioner Adult Health | DX: R92.8 Other abnormal and inconclusive findings on diagnostic imaging of breast (principal); N60.09 Solitary cyst of unspecified breast | CPT/HCPCS: 77062; 77066 ==

== ENCOUNTER → 2024-11-12 07:03 | Outpatient (REF) | payer OTHER, SELFPAY ==
[2024-11-12 09:15] LABS: Urine Albumin Negative (Neg - Trace); Urine Bilirubin Negative (Negative); Urine Character Clear (Clear); Urine Color Yellow; Urine Glucose 3+ (Negative); Urine Ketone Negative (Negative); Urine Leukocyte Negative (Negative); Urine Nitrite Negative (Negative); Urine Occult Blood 4+ (Negative); Urine Urobilinogen Negative (Neg - 1+)
[2024-11-12 09:25] LABS: Urine Red Blood Cell 16-20 /HPF (0-2); Urine White Cell 0-2 /HPF (0-5)
== END ==
LOC: RAD 07:03
PROVIDERS: ATTENDING PHYSICIAN Nurse Practitioner Adult Health
DX: R31.9 Hematuria, unspecified (principal)
CPT/HCPCS: 76770; 81003; 81015

== ENCOUNTER → 2024-12-17 14:10 | Outpatient (REF) | payer OTHER, SELFPAY | LOC: CLINIC 14:10 | PROVIDERS: ATTENDING PHYSICIAN Urology | DX: R31.0 Gross hematuria (principal) | CPT/HCPCS: 88112 ==

== ENCOUNTER → 2024-12-18 16:11 | Outpatient (REF) | payer OTHER, SELFPAY | LOC: RAD 16:11 | PROVIDERS: ATTENDING PHYSICIAN Urology; FAMILY PHYSICIAN Nurse Practitioner Adult Health | DX: R31.0 Gross hematuria (principal) | CPT/HCPCS: 74178; Q9967 ==

== ENCOUNTER → 2024-12-27 06:50 | Outpatient (REF) | payer OTHER, SELFPAY ==
[2024-12-27 07:39] LABS: Urine Albumin Negative (Neg - Trace); Urine Bilirubin Negative (Negative); Urine Character Clear (Clear); Urine Color Yellow; Urine Glucose 4+ (Negative); Urine Ketone Negative (Negative); Urine Leukocyte 1+ (Negative); Urine Nitrite Negative (Negative); Urine Occult Blood Negative (Negative); Urine Urobilinogen Negative (Neg - 1+)
[2024-12-27 08:07] LABS: Urine Urothelial Cell 0-2 /LPF (FEW)
[2024-12-27 08:08] LABS: Urine Bacteria Moderate (Negative); Urine Red Blood Cell 0-2 /HPF (0-2)
[2024-12-27 08:23] LABS: ALT (SGPT) 37 U/L (0-35); AST (SGOT) 25 U/L (14-36); Albumin 4.4 g/dl (3.5-5.0); Alkaline Phosphatase 81 U/L (38-126); Blood Urea Nitrogen 17 mg/dl (7-17); Calcium 9.9 mg/dl (8.4-10.2); Carbon Dioxide 25 mmol/L (22-30); Chloride 103 mmol/L (98-107); Glucose 117 mg/dl (70-99); Sodium 137 mmol/L (135-145); Total Bilirubin 0.4 mg/dl (0.2-1.3); Total Protein 7.3 g/dl (6.3-8.2); eGFR > 60.00
[2024-12-27 08:24] LABS: Glycohemoglobin (HgbA1c) 6.3 % (4.0-5.6)
[2024-12-27 08:39] LABS: Microalbumin, Random Urine <0.6 mg/dl (0.6-1.7)
== END ==
LOC: CLINIC 06:50
PROVIDERS: ATTENDING PHYSICIAN Nurse Practitioner Adult Health
DX: E11.9 Type 2 diabetes mellitus without complications (principal); R31.0 Gross hematuria
CPT/HCPCS: 36415; 80053; 81003; 81015; 82043; 82570; 83036; 88112

== ENCOUNTER → 2025-01-23 06:36 | Outpatient (REF) | payer OTHER, SELFPAY ==
[2025-01-23 08:13] LABS: HDL Cholesterol 58 mg/dl; LDL Cholesterol, Calculated 60 mg/dl; Total Cholesterol 134 mg/dl (50-199); Triglyceride 84 mg/dl (10-149); Very Low Density Lipoprotein 16 mg/dl (0-30)
== END ==
LOC: CLINIC 06:36
PROVIDERS: ATTENDING PHYSICIAN Nurse Practitioner Adult Health
DX: I25.10 Atherosclerotic heart disease of native coronary artery without angina pectoris (principal); I21.4 Non-ST elevation (NSTEMI) myocardial infarction; E78.5 Hyperlipidemia, unspecified
CPT/HCPCS: 36415; 80061

== ENCOUNTER → 2025-04-16 06:34 | Outpatient (REF) | payer OTHER, SELFPAY ==
[2025-04-16 07:20] LABS: Hematocrit 39.3 % (37.0-47.0); Mean Corp Hgb Conc. 33.1 g/dL (33.0-37.0); Mean Corpuscular Hgb 29.6 pg (27.0-31.0); Mean Corpuscular Volume 89.5 fL (81.0-99.0); Mean Platelet Volume 10.2 fL (7.4-10.4); Platelet Count 226 10^3/uL (130-400); Red Blood Cell Count 4.39 10^6/uL (4.20-5.40); Red Cell Dist. Width 14.6 % (11.5-14.5); White Blood Cell Count 8.1 10^3/uL (4.8-10.8)
[2025-04-16 07:52] LABS: ALT (SGPT) 27 U/L (0-35); AST (SGOT) 20 U/L (14-36); Albumin 4.6 g/dl (3.5-5.0); Alkaline Phosphatase 66 U/L (38-126); Blood Urea Nitrogen 23 mg/dl (7-17); Calcium 9.9 mg/dl (8.4-10.2); Carbon Dioxide 26 mmol/L (22-30); Chloride 107 mmol/L (98-107); Glucose 119 mg/dl (70-99); Potassium 4.6 mmol/L (3.5-5.1); Sodium 141 mmol/L (135-145); Total Bilirubin 0.4 mg/dl (0.2-1.3); Total Protein 7.2 g/dl (6.3-8.2); eGFR > 60.00
[2025-04-16 08:58] LABS: Glycohemoglobin (HgbA1c) 6.3 % (4.0-5.6)
== END ==
LOC: CLINIC 06:34
PROVIDERS: ATTENDING PHYSICIAN Nurse Practitioner Adult Health
DX: K29.60 Other gastritis without bleeding (principal); K21.9 Gastro-esophageal reflux disease without esophagitis; E11.9 Type 2 diabetes mellitus without complications
CPT/HCPCS: 36415; 80053; 83036; 85027

== ENCOUNTER → 2025-07-18 09:50 | Outpatient (REF) | payer OTHER, SELFPAY ==
[2025-07-18 11:05] LABS: Microalb - Urine Creatinine 31.500 mg/dl
[2025-07-18 11:09] LABS: Microalbumin, Random Urine <0.6 mg/dl (0.6-1.7)
[2025-07-18 11:16] LABS: ALT (SGPT) 30 U/L (0-35); AST (SGOT) 21 U/L (14-36); Albumin 4.7 g/dl (3.5-5.0); Alkaline Phosphatase 70 U/L (38-126); Blood Urea Nitrogen 22 mg/dl (7-17); Calcium 10.2 mg/dl (8.4-10.2); Carbon Dioxide 26 mmol/L (22-30); Chloride 105 mmol/L (98-107); Glucose 109 mg/dl (70-99); HDL Cholesterol 67 mg/dl; LDL Cholesterol, Calculated 71 mg/dl; Potassium 5.3 mmol/L (3.5-5.1); Sodium 138 mmol/L (135-145); Total Protein 7.6 g/dl (6.3-8.2); Very Low Density Lipoprotein 12 mg/dl (0-30); eGFR > 60.00
[2025-07-18 11:48] LABS: Glycohemoglobin (HgbA1c) 6.1 % (4.0-5.6)
== END ==
LOC: CLINIC 09:50
PROVIDERS: ATTENDING PHYSICIAN Nurse Practitioner Adult Health
DX: I25.10 Atherosclerotic heart disease of native coronary artery without angina pectoris (principal); I21.4 Non-ST elevation (NSTEMI) myocardial infarction; E11.9 Type 2 diabetes mellitus without complications
CPT/HCPCS: 36415; 80053; 80061; 82043; 82570; 83036

== ENCOUNTER → 2025-08-27 09:23 | Outpatient (REF) | payer OTHER, SELFPAY ==
[2025-08-27 11:35] LABS: Blood Urea Nitrogen 17 mg/dl (7-17); Calcium 9.4 mg/dl (8.4-10.2); Carbon Dioxide 27 mmol/L (22-30); Chloride 102 mmol/L (98-107); Glucose 106 mg/dl (70-99); Potassium 5.3 mmol/L (3.5-5.1); Sodium 137 mmol/L (135-145); eGFR > 60.00
== END ==
LOC: CLINIC 09:23
PROVIDERS: ATTENDING PHYSICIAN Nurse Practitioner Adult Health
DX: I11.9 Hypertensive heart disease without heart failure (principal); E87.5 Hyperkalemia
CPT/HCPCS: 36415; 80048